=== PATIENT | female | born 1955 | race Caucasian/White ===

== ENCOUNTER 2023-06-27 08:54 | Outpatient (OUT) | payer OTHER, SELFPAY ==
--- NOTE | 2023-06-27 08:59 | XR_ITS ---
[address] [address] Patient Name: ISAIAS NAVARRO MRN: [id number] date: 1955 Sex: F Assigned Patient Location: [facility] Current Patient Location: [facility] Accession/Order Number: [id number] Exam Date: 06/27/2023 09:20 Report Date: 06/27/2023 10:19 At the request of: PALMER AYALA Procedure: XR DEXA axial skeleton EXAMINATION: XR DEXA axial skeleton HISTORY: Screening Osteoporosis Z13.820 COMPARISON: DEXA bone densitometry 02/20/2018 TECHNIQUE: Dual-energy X-ray absorptiometry (DXA) was performed. FINDINGS: SPINE ANALYSIS: Average bone mineral density is 1.146 g/cm2. T-score (standard deviation relative to young adult mean): -0.3 . -0.9% change since prior study. HIP ANALYSIS: Lowest bone mineral density is within the left femoral neck, 0.790 g/cm2. T-score (standard deviation relative to young adult mean): -1.8 . -6.7% change since prior study. XR/XR DEXA axial skeleton IMPRESSION: [employer] Classification: Osteopenia - Moderate Fracture Risk Electronically authenticated by: ERIC BOND Date: 06/27/2023 10:19
--- NOTE | 2023-06-27 09:00 | MM_ITS ---
Patient Name: ISAIAS NAVARRO MR#: [id number] : 1955 Exam Date: 06/27/2023 Ordering Doctor: DR PALMER AYALA M.D. RADIOLOGY REPORT PROCEDURE: MM TOMOSYNTHESIS SCREENING BI COMPARISON: MG MAMM SCREEN 3D SHERMAN CAD, 06/14/2022. MG MAMM SCREEN 3D SHERMAN CAD, 06/11/2021. MG MAMM SCREEN 3D SHERMAN CAD, 06/09/2020. MG MAMM SHERMAN SCRN W CAD DIG, 01/31/2013. INDICATIONS: Screening Calculator Name NCI Breast Cancer Risk Assessment Tool 5 Year Breast Cancer Risk 4.90% Lifetime Breast Cancer Risk 17.50% Personal Breast Cancer No Personal Ovarian Cancer No Treatments None Family Cancers Mother with breast cancer at age 40; Sister with breast cancer at age 59. LOCATION: [facility] BREAST COMPOSITION: There are scattered areas of fibroglandular density. FINDINGS: DIAGNOSTIC CATEGORY 2--BENIGN FINDING: RIGHT BREAST: No significant suspicious finding. Scattered benign-appearing calcifications are present. No significant change has occurred. LEFT BREAST: No significant suspicious finding. Scattered benign-appearing calcifications are present. No significant change has occurred. RECOMMENDATIONS: ROUTINE MAMMOGRAM AND CLINICAL EVALUATION IN 12 MONTHS. PLEASE NOTE: A NORMAL MAMMOGRAM DOES NOT EXCLUDE THE POSSIBILITY OF BREAST CANCER. A CLINICALLY SUSPICIOUS PALPABLE LUMP SHOULD BE BIOPSIED. Dictated by: Antonio Gong M.D. on 06/27/2023 at 13:16 Approved by: Antonio Gong M.D. on 06/27/2023 at 13:19
== END 2023-06-27 08:55 | disposition home or self-care (01) ==
LOC: MAMMO 08:54
PROVIDERS: PCP Family Medicine; Visit Provider Obstetrics & Gynecology
DX: Z12.31 Encounter for screening mammogram for malignant neoplasm of breast (principal); Z13.820 Encounter for screening for osteoporosis; Z80.3 Family history of malignant neoplasm of breast; M85.80 Other specified disorders of bone density and structure, unspecified site
CPT/HCPCS: 77063; 77067; 77080

== ENCOUNTER 2024-06-28 09:45 | Outpatient (OUT) | payer MEDICARE, SELFPAY ==
--- NOTE | 2024-06-28 09:48 | MM_ITS ---
Patient Name: ISAIAS NAVARRO MR#: [id number] : 1955 Exam Date: 06/28/2024 Ordering Doctor: DR PALMER AYALA M.D. RADIOLOGY REPORT PROCEDURE: MM TOMOSYNTHESIS SCREENING BI COMPARISON: MM TOMOSYNTHESIS SCREENING BI, 06/27/2023. MG MAMM SCREEN 3D SHERMAN CAD, 06/14/2022. MG MAMM SCREEN 3D SHERMAN CAD, 06/11/2021. MG MAMM SHERMAN SCRN W CAD DIG, 01/31/2013. INDICATIONS: Screening Calculator Name NCI Breast Cancer Risk Assessment Tool 5 Year Breast Cancer Risk 4.90% Lifetime Breast Cancer Risk 16.80% Personal Breast Cancer No Personal Ovarian Cancer No Treatments None Family Cancers Mother with breast cancer at age 40; Sister with breast cancer at age 59. LOCATION: [facility] BREAST COMPOSITION: There are scattered areas of fibroglandular density. FINDINGS: DIAGNOSTIC CATEGORY 1--NEGATIVE. RIGHT BREAST: No significant suspicious finding. LEFT BREAST: No significant suspicious finding. RECOMMENDATIONS: ROUTINE MAMMOGRAM AND CLINICAL EVALUATION IN 12 MONTHS. PLEASE NOTE: A NORMAL MAMMOGRAM DOES NOT EXCLUDE THE POSSIBILITY OF BREAST CANCER. A CLINICALLY SUSPICIOUS PALPABLE LUMP SHOULD BE BIOPSIED. Dictated by: Greg Yusuf DO on 06/28/2024 at 16:11 Approved by: Greg Yusuf DO on 06/28/2024 at 16:12
== END 2024-06-28 09:46 | disposition home or self-care (01) ==
LOC: MAMMO 09:45
PROVIDERS: PCP Family Medicine; Visit Provider Obstetrics & Gynecology
DX: Z12.31 Encounter for screening mammogram for malignant neoplasm of breast (principal); Z80.3 Family history of malignant neoplasm of breast
CPT/HCPCS: 77063; 77067

== ENCOUNTER 2025-01-03 10:38 | Outpatient (OUT) | payer MEDICARE, BC, SELFPAY ==
--- OUTSIDE RECORDS SUMMARY | 2025-01-03 10:42 | XMS_ITS | CCD ---
Author Organization [facility] Care Team Providers Care Oil Pumper Name Role Phone JAMIE, DR CHAKRABORTY Admitting Unavailable JAMIE, DR CHAKRABORTY Consulting Unavailable JAMIE, DR CHAKRABORTY Attending Unavailable JESSY ., DR HAMILTON Primary Care Unavailable Umair Hopson Consulting Unavailable KORINA FIGUEROA Primary Care Physician Unavailab Palmer Kendall Attending Unavailable Palmer Hernandez Admitting Unavailable Palmer Hernandez Attending Unavailable Palmer Hernandez Admitting Unavailable Problems Problem ClassificationProblemDateDocumented DateEpisodic/ChronicOther screening for suspected conditions (not mental disorders or infectious disease) (4 sources)Encounter for screening mammogram for malignant neoplasm of breast; Translations: [ENC SCR MAMMO MALIG NEOPLASM BREAST]Onset: 78-74-5043Atynmotp Residual codes; unclassified (1 source)Family history of malignant neoplasm of breast; Translations: [FAMILY HX MALIG NEOPLASM OF BREAST]Onset: 97-57-8285Oltzebqj Results Test NameValueInterpretationReference RangeFacilityPAP [id number] 06-27-2023 Cytology report Cyto stain Doc (Cvx/Vag)NoteInvalid Interpretation CodeFisher Holy Cross HospitalComment on above:Result Comment: TESTS RESULT FLAG UNITS REF RANGE LAB Clinician Provided Cytology Information Source.............Endocervix No. of containers..01 ThinPrep Vial DIAGNOSIS: 01 NEGATIVE FOR INTRAEPITHELIAL LESION OR MALIGNANCY. CELLULAR CHANGES ASSOCIATED WITH ATROPHY ARE PRESENT. Specimen adequacy: 01 Satisfactory for evaluation. Endocervical component may not be distinguished in cases of atrophy. Performed by: 01 Scarlett Oh, Mail Manager . 01 Note: Note 01 The Pap smear is a screening test designed to aid in the detection of premalignant and malignant conditions of the uterine cervix. It is not a diagnostic procedure and should not be used as the sole means of detecting cervical cancer. Both false-positive and false-negative reports do occur. Test Methodology: Note 01 This liquid based ThinPrep(R) pap test was screened with the use of an image guided system. FLAG LEGEND: L-Low Normal,H-High Normal,LL-Alert Low,HH-Alert High <-Panic Low,>-Panic High,A-Abnormal,AA-Critical Abnormal Performed at: [address] [facility] [place] [address] Jami Antonio MD, Uhbxjzlnk By: #### [id number] #### [facility] [address], [place] [address]NSB 16+18+31+33+35+39+45+51+52+56+58+59+66+68 DNA Probe+sig amp Ql (Cvx)NegativeInvalid Interpretation CodeNegativeFisher Holy Cross Hospital Comment on above:Result Comment: This nucleic acid amplification test detects fourteen high-risk HPV types (16,18,31,33,35,39,45,51,52,56,58,59,66,68) without differentiation. Performed at: [facility] [place] [id number] MD Paco Farrell Performed at: =G [facility] [place] [id number] MD Antonio ManaliPerformed By: #### [id number] #### [facility] [address], [place] [address]XUZ 425337vl 35-08-7961Bilitsmywk TechniqueBRUSH-SPATULANormal [facility] Medical CenterComment on above:Performed By: #### [id number] #### [facility] [address], [place] [address]Ilkuovskwlouq Body SiteENDOCERVIXNormalSumma Health Wadsworth - Rittman Medical CenterComment on above:Performed By: #### [id number] #### [facility] [address], [place] [address]Eekrpqotd Orderon 16-22-1734Hklmtactc Order [id number]#1.00TIFFKing's Daughters Medical Center OhioPhysician [id number]#1.00TIFFNormal [facility] CenterMG MAMM SCREEN 3D SHERMAN CADon 89-09-4844ZE MAMM SCREEN 3D SHERMAN CADPatient: ISAIAS NAVARRO Exam Date: 06/14/2022 : 1955 Gender:F Ordering : DR PALMER HERNANDEZ M.D. Admission #: [id number] Family : Order #: [id number] CLICK HERE TO VIEW EXAM RADIOLOGY REPORT PROCEDURE: MAMMOGRAM SCREENING 3D BILATERAL CAD COMPARISON: MG MAMM SCREEN 3D SHERMAN CAD, 06/09/2020. MG MAMM SCREEN 3D SHERMAN CAD, 06/11/2021. INDICATIONS: Screening mammography Calculator Name NCI Breast Cancer Risk Assessment Tool 5 Year Breast Cancer Risk 4.80% Lifetime Breast Cancer Risk 18.00% Personal Breast Cancer No Personal Ovarian Cancer No Treatments None Family Cancers Mother with breast cancer at age 40; Sister with breast cancer at age 59. LOCATION: [facility] BREAST COMPOSITION: Scattered areas fibroglandular density. FINDINGS: DIAGNOSTIC CATEGORY 2--BENIGN FINDING. NO CHANGE FROM COMPARISON. Scattered benign-appearing calcifications are present. Scattered benign-appearing lymph nodes are present. RIGHT BREAST: No significant suspicious finding. LEFT BREAST: No significant suspicious finding. RECOMMENDATIONS: ROUTINE MAMMOGRAM AND CLINICAL EVALUATION IN 12 MONTHS. PLEASE NOTE: A NORMAL MAMMOGRAM DOES NOT EXCLUDE THE POSSIBILITY OF BREAST CANCER. A CLINICALLY SUSPICIOUS PALPABLE LUMP SHOULD BE BIOPSIED. Dictated by: Umair Hopson MD on 06/14/2022 at 10:37 Approved by: Umair Hopson MD on 06/14/2022 at 10:38[facility] Encounters Encounter DateEncounter TypeCare ProviderFacilityStart: 06-21-2023 End: 89-67-7297shifxqexzqPjaxf D KastenFacility:FTMCStart: 06-21-2023 End: 28-79-4636Bue Sergio offPalmer Hernandez [facility] Start: 06-14-2022 End: 63-08-5585rizvgredfvLL JAMES KASTENFacility: Payers DatePayer CategoryPayerPolicy [id number] [id number] Social History DateTypeDetailFacilityTobacco smoking statusNo Smoking Status EnteredC[facility] Clinic [facility] Hospitalex Assigned At BirthFemalSycamore Medical Center Evaluation + Plan note Note Date & TypeNoteFacilityEvaluation + Plan note No data available for this section [facility] Discharge instructions Note Date & TypeNoteFacilityHospital Discharge instructions No data available for this section [facility] Progress note Note Date & TypeNoteFacilityProgress note No data available for this section [facility] Summary Purpose Family History No Family History Records Found No data available for this section No data available for this section No Family History Records Found Advance Directives No Advanced Directives Records FoundNo Advanced Directives Records Found Additional Source Comments INFORMATION SOURCE (unrecogn ized section and content) DATE CREATED AUTHOR 06/17/2022 [facility] DATE CREATED AUTHOR AUTHOR'S ORGANIZ ATION 06/28/2023 [facility] Patient Care team informatio n (unrecognized section and content) Personnel Name: KORINA FIGUEROA MD Personnel Name: KORINA FIGUEROA MD FOR RECORDS PERTAINING TO PATIENTS WHO ARE OR HAVE BEEN ENROLLED IN A CHEMICAL DEPENDENCY/SUBSTANCEABUSE PROGRAM, SOME INFORMATION MAY BE OMITTED. This clinical summary was aggregated from multiple sources. Caution should be exercised in using it in the provision of clinical care. This summary normalizes information from multiple sources, and as a consequence, information in this document may materially change the coding, format and clinical context of patient data. In addition, data may be omitted in some cases. CLINICAL DECISIONS SHOULD BE BASED ON THE PRIMARY CLINICAL RECORDS. [facility] [employer] provides no warranty or guarantee of the accuracy or completeness of information in this document.
--- OUTSIDE RECORDS SUMMARY | 2025-01-03 10:42 | XMS_ITS | Patient Health Record ---
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 Name Role Phone Geoff Romo Primary Care Provider [phone] Allergies No Known Allergies Results Component Value Reference Range Notes UA (Urinalysis, Dipstix only - w/o micro) Reviewed date:06/28/2024 08:17:21 PM Interpretation: Performing Lab: Notes/Report: GLUCOSE - 0 - 133 MG/DL ALBUMIN-NEG - NEG MG/DLBILIRUBIN-NEG - NEG MG/DLSPECIFIC GRAVITY1.0201.001 - 1.035KETONES+NEG - NEG MG/DLBLOOD, UR-PH, UR5.05 - 9NITRITE-NEG - NEGESTERASE (NAMRATA)-NEG - NEG MG/DLMM tomosynthesis screening BI Reviewed date:06/28/2024 08:17:21 PM Interpretation: Performing Lab: Notes/Report: Source Facility: [place] [address] [place] [address] Mammography Report Signed Patient: ALEXANDREA MORENO MR#: [id number] : 1955 Acct:[id number] Age/Sex: 68 / F ADM Date: 06/28/24 Loc: MAMMO Attending Dr: PALMER AYALA Ordering Physician: PALMER AYALA Results: Date of Service: 06/28/24 Follow Up: Procedure(s): MM tomosynthesis screening BI Accession Number(s): [id number] cc: Ministerio Romo M.D.; PALMER AYALA Patient Name: ALEXANDREA MORENO MR#: [id number] : 1955 Exam Date: 06/28/2024 Ordering Doctor: DR PALMER AYALA M.D. RADIOLOGY REPORT PROCEDURE: MM TOMOSYNTHESIS SCREENING BI COMPARISON: MM TOMOSYNTHESIS SCREENING BI, 06/27/2023. MG MAMM SCREEN 3D SHERMAN CAD, 06/14/2022. MG MAMM SCREEN 3D SHERMAN CAD, 06/11/2021. MG MAMM SHERMAN SCRN W CAD DIG, 01/31/2013. INDICATIONS: Screening Calculator Name NCI Breast Cancer Risk Assessment Tool 5 Year Breast Cancer Risk 4.90% Lifetime Breast Cancer Risk 16.80% Personal Breast Cancer No Personal Ovarian Cancer No Treatments None Family Cancers Mother with breast cancer at age 40; Sister with breast cancer at age 59. LOCATION: [facility] BREAST COMPOSITION: There are scattered areas of fibroglandular density. FINDINGS: DIAGNOSTIC CATEGORY 1--NEGATIVE. RIGHT BREAST: No significant suspicious finding. LEFT BREAST: No significant suspicious finding. RECOMMENDATIONS: ROUTINE MAMMOGRAM AND CLINICAL EVALUATION IN 12 MONTHS. PLEASE NOTE: A NORMAL MAMMOGRAM DOES NOT EXCLUDE THE POSSIBILITY OF BREAST CANCER. A CLINICALLY SUSPICIOUS PALPABLE LUMP SHOULD BE BIOPSIED. Dictated by: Greg Yusuf DO on 06/28/2024 at 16:11 Approved by: Greg Yusuf DO on 06/28/2024 at 16:12 Dictated By: Greg Yusuf M.D. Signed By: 06/28/24 1614 DD/ 12 TD/TT: Application Administrator: Reason For Referral No Information Medications Medication SIG (Take, Route, Frequency, Duration) Notes Start Date End Date Status Bimatoprost 0.03 % Ophthalmic; Duration: 90 Days ActiveSertraline HCl 100 MGOral; Duration: 90 DaysActive Immunizations Vaccine Route Administration Date Status Comme nts Flu, Fluad (68026) 65 yrs and older, single-dose syringe (5604-0252) IM Intramuscular 01/03/2025 Administered Social History Tobacco Use: Social History Observation Description Date Details (start date - stop date) Never Smoker NA - NA Tobacco Control (Standard) Question Answer Notes Tobacco use: Nonsmoker AUDIT-C (Standard) Question Answer Notes Did you have a drink containing alcohol in the p ast year? Yes How often did you have six or more drinks on one occasion in the past year?Never (0 point)How many drinks did you have on a typical day when you were drinking in the past year?1 or 2 drinks (0 point)How often did you have a drink containing alcohol in the past year?2 to 3 times a week (3 points)Onkhmz9Fligsxcvgtmhvb Positive Problems Problem Type SNOMED Code ICD Code Onset Dates Problem Status W/U Status Risk Notes Problem Hyperlipidemia (91917055) Hyperlipidemia (E78.5) ActiveconfirmedProblemEdema (20721997)Edema (R60.9)Activeconfirmed Vital Signs Blood pressure diastolic 84 mm Hg 01/03/2025 Qzxpym11 in01/03/2025lood pressure mm Hg01/03/20256277Cmcbxv416.2 lbs 01/03/2025BMI26.55 kg/m201/03/2025 Encounters Encounter Location Date Provider Diagnosis [facility] [address] [place] [address] 06/28/2024 Geoff Hoy [address] [place] [address] 01/23/2024oug HoyDysuria R30.[address] [address]/06/2025Doug HoyEdema R60.9 and Encounter for immunization Z23 Assessments Encounter Date Diagnosis (ICD Code) Assessment Notes Treatment Notes Treatment Clinical Notes Section Notes 01/23/2024 Dysuria (ICD-10 - R30.0) 01/03/2025Edema (ICD-10 - R60.9)no hx bleeding - if + Start xacolnt0501/03/2025 Encounter for immunization (ICD-10 - Z23) Plan Of Treatment Pending Test Test Name Order Date US Lower Extremity RT 01/03/2025 Lipid Panel 06/27/2023 Insurance Providers Payer Name Payer Address Payer Phone Subscriber Number Group Number Insured Name Patient Relationship to Insured Coverage Start Date Coverage End Date [employer] [place] [employer] [address] [address] [place] [phone] [id number] Tavo Moreno - patient is the spouse of the insured
== END 2025-01-03 10:39 | disposition home or self-care (01) ==
PROVIDERS: PCP Family Medicine; Visit Provider Family Medicine
DX: R60.0 Localized edema (principal)
CPT/HCPCS: 93971